=== PATIENT | female | born 1985 | race Caucasian/White ===

== ENCOUNTER 2017-09-21 19:01 | Emergency (ER) | payer OTHER ==
[~2017-09-21] VITALS: Ht 175.3 cm; Wt 85.1 kg
--- NOTE | 2017-09-21 19:23 | ED.ADGEN ---
Past History Past Medical History: Migraines Past Surgical History: Hysterectomy Adult General Chief Complaint Chief Complaint ".. I am having a Migraine--- it just like my usual... but more... I usually have to come and get a shot of Toradol... when they get this bad... I ve had CT ... and MRI normal... I see Dr. Ellsworth... and she tell me to just come in get treated when they are bad... I tried to see my doctor.. and Dr Dunn..but all spots filled.. said go to Emergency room.. I ve been trying to do over the counter the past couple days..." HPI HPI Patient is a 32 year old female who presents with above hx and complaints of Migraine. (See Handwritten chart for down time. ) No history of fever. No history of cancer. No history immunosuppression. History of travel or specific ill contacts. Patient has had previous MRIs and CTs reportedly negative. Patient states when migraines are bad she usually comes to the ER and get a Toradol shot. Review of Systems Review of Systems Constitutional: Denies fever or chills [] Eyes: Denies change in visual acuity, redness, or eye pain [] HENT: Denies nasal congestion or sore throat [] Respiratory: Denies cough or shortness of breath [] Cardiovascular: No additional information not addressed in HPI [] GI: Denies abdominal pain, nausea, vomiting, bloody stools or diarrhea [] : Denies dysuria or hematuria [] Musculoskeletal: Denies back pain or joint pain [] Integument: Denies rash or skin lesions [] Neurologic: Denies headache, focal weakness or sensory changes [] Endocrine: Denies polyuria or polydipsia [] All other systems were reviewed and found to be within normal limits, except as documented in this note. Family History Family History Noncontributory Allergies Allergies Allergies Coded Allergies Type Severity Reaction Last Updated Verified tramadol Allergy Intermediate 09/21/17 Yes Physical Exam Physical Exam Constitutional: Well developed, well nourished, no acute distress, non-toxic appearance. [] HENT: Normocephalic, atraumatic, bilateral external ears normal, oropharynx moist, no oral exudates, nose normal. [] Eyes: PERRLA, EOMI, conjunctiva normal, no discharge. [] Neck: Normal range of motion, no tenderness, supple, no stridor. [] Cardiovascular:Heart rate regular rhythm, no murmur [] Lungs & Thorax: Bilateral breath sounds clear to auscultation [] Abdomen: Bowel sounds normal, soft, no tenderness, no masses, no pulsatile masses. [] Skin: Warm, dry, no erythema, no rash. [] Back: No tenderness, no CVA tenderness. [] Extremities: No tenderness, no cyanosis, no clubbing, ROM intact, no edema. [] Neurologic: Alert and oriented X 3, normal motor function, normal sensory function, no focal deficits noted. []Cutting Machine Tender Decorative equal. DTRs +2 patella and brachial. Psychologic: Affect anxious, judgement normal, mood normal. [] Current Patient Data Vital Signs Vital Signs Date Time Temp Pulse Resp B/P (MAP) Pulse Ox O2 Delivery O2 Flow Rate FiO2 09/21/17 21:43 67 18 112/69 (83) 98 Room Air 09/21/17 19:22 98.2 EKG EKG [] Radiology/Procedures Radiology/Procedures Patient declines CT or lab evaluation.[] Course & Med Decision Making Course & Med Decision Making Pertinent Labs and Imaging studies reviewed. (See chart for details) Patient reports markedly pain at time of discharge. Patient keep follow-up primary care. Patient keep follow-up with neurology. Patient return of any concerns. [] Final Impression Final Impression 1. Migraine-[] Dragon Disclaimer Dragon Disclaimer This electronic medical record was generated, in whole or in part, using a voice recognition dictation system. KY CAMPA MD Sep 21, 2017 19:23
[2017-09-21 21:43] VITALS: BP 112/69
== END 2017-09-21 21:44 | disposition home or self-care (01) ==
LOC: ER 19:01
DX: G43.909 Migraine, unspecified, not intractable, without status migrainosus (principal); Z88.6 Allergy status to analgesic agent
CPT/HCPCS: 99284

== ENCOUNTER → 2018-01-24 | Outpatient (CLI) | payer OTHER ==
[~2018-01-24] MED LIST: HYDR-971 PO
--- NOTE | 2018-01-24 15:27 | RAD ---
PQRS Compliance statement: One or more of the following individualized dose reduction techniques were utilized for this examination: 1. Automated exposure control. 2. Adjustment of the mA and/or kV according to patient size. 3. Use of iterative reconstruction technique. Indication:right flank pain hematuria x2 weeks, sx hysterectomy TECHNIQUE: CT abdomen and pelvis without IV contrast with multiplanar reformats. COMPARISON: None FINDINGS: Limited evaluation of solid abdominal and pelvic organs due to lack of IV contrast. Heart is normal in size. No pericardial or pleural effusion. Clear lung bases. Noncontrast appearance of the liver, spleen, pancreas, adrenals within normal limits. Status post cholecystectomy. No nephrolithiasis or hydronephrosis. No enlarged retroperitoneal or pelvic adenopathy. No free pelvic fluid or ascites. No bowel obstruction. Status post hysterectomy. Urinary bladder is decompressed but shows no opaque stones. Bilateral ovaries are seen. No pneumoperitoneum. No suspicious bony lesion. IMPRESSION: Limited evaluation of solid abdominal and pelvic organs due to lack of IV contrast. No nephrolithiasis or hydronephrosis. Electronically signed by: Kartik Ramos DO (01/24/2018 3:23 PM) [id number]
== END | disposition home or self-care (01) ==
LOC: CT 14:46
PROVIDERS: ATTEND Physician Assistant Medical
DX: R10.84 Generalized abdominal pain (principal); Z90.49 Acquired absence of other specified parts of digestive tract; Z90.710 Acquired absence of both cervix and uterus
CPT/HCPCS: 74176

== ENCOUNTER 2018-01-25 08:54 | Emergency (ER) | payer OTHER ==
[~2018-01-25] VITALS: Ht 157.5 cm; Wt 86.2 kg
[2018-01-25] MEDS ORDERED: KETOROLAC 60 MG/2 ML VIAL. IM ONE (09:30)
[2018-01-25] MEDS ORDERED: ONDANSETRON ODT 4 MG TAB.RAPDIS PO ONE (09:30)
[2018-01-25] MEDS ORDERED: IV NORMAL SALINE 1,000ML 1,000 ML IV SCH (09:31)
[2018-01-25 09:40] LABS: BACTERIA,URINE MOD /HPF (0-FEW); BILIRUBIN,URINE NEG (NEG); CLARITY,URINE CLOUDY; COLOR,URINE AMBER; GLUCOSE,URINE NEG (NEG); NITRITE,URINE NEG (NEG); RBC,URINE RARE /HPF (0-2); UROBILINOGEN,URINE 0.2 mg/dL (0.2 mg/dL); WBC,URINE RARE /HPF (0-4)
[2018-01-25 09:41] LABS: SQUAMOUS EPITHELIAL CELL,UR MANY /LPF
[2018-01-25 09:54] LABS: BASO # 0.1 x10^3/uL (0.0-0.2); BASO % 1 % (0-3); EOS # 0.4 x10^3/uL (0.0-0.7); EOS % 4 % (0-3); HEMATOCRIT 42.8 % (36.0-47.0); HEMOGLOBIN 14.9 g/dL (12.0-15.5); LYMPH # 3.2 x10^3/uL (1.0-4.8); LYMPH % 33 % (24-48); MEAN CORPUSCULAR HEMOGLOBIN 32 pg (25-35); MEAN CORPUSCULAR HGB CONC 35 g/dL (31-37); MEAN CORPUSCULAR VOLUME 91 fL (79-100); MONO # 0.5 x10^3/uL (0.0-1.1); MONO % 5 % (0-9); NEUT # 5.4 x10^3uL (1.8-7.7); NEUT % 57 % (31-73); PLATELET COUNT 249 x10^3/uL (140-400); RED BLOOD COUNT 4.73 x10^6/uL (3.50-5.40); WHITE BLOOD COUNT 9.5 x10^3/uL (4.0-11.0)
[2018-01-25] MEDS ORDERED: KETOROLAC 30 MG/ML VIAL. IV ONE (10:00)
[2018-01-25] MEDS ORDERED: ONDANSETRON PF 4 MG/2 ML VIAL. IV ONE (10:00)
[2018-01-25 10:09] LABS: ALBUMIN/GLOBULIN RATIO 1.3 (1.0-1.7); CALCIUM 9.1 mg/dL (8.5-10.1); CREATININE 0.7 mg/dL (0.6-1.0); GFR 95.8; POTASSIUM 3.1 mmol/L (3.5-5.1); TOTAL BILIRUBIN 0.8 mg/dL (0.2-1.0); TOTAL PROTEIN 7.2 g/dL (6.4-8.2)
[2018-01-25] MEDS ORDERED: HYDR-3165 PO (10:53)
[2018-01-25 10:56] VITALS: BP 94/59
[2018-01-25] MEDS ORDERED: POTASSIUM CHLORIDE 20 MEQ TABLET.ER. PO ONE (11:00)
--- NOTE | 2018-01-25 11:08 | PHYS DOC ---
Past History Past Medical History: Migraines Past Surgical History: Appendectomy, Cholecystectomy, Hysterectomy Alcohol Use: Occasionally Drug Use: None Adult General Chief Complaint Chief Complaint: PAIN ON URINATION HPI HPI Patient is a 32 year old female who presents with complaining of painful urination. Patient states she has had painful urination and seen by her primary care physician and treated for UTI 1 week ago. Patient states she had small amount of not in her urine at the same time and after her symptoms did not get better her primary care physician orders CT of abdomen and pelvis for evaluation of kidney stones that was done yesterday in this hospital. Patient complaining of bilateral flank pain dysuria during daily and nausea without vomiting, fever and chills, diarrhea and constipation. Review of Systems Review of Systems Constitutional: Denies fever or chills [] Eyes: Denies change in visual acuity, redness, or eye pain [] HENT: Denies nasal congestion or sore throat [] Respiratory: Denies cough or shortness of breath [] Cardiovascular: No additional information not addressed in HPI [] GI: Reports abdominal pain, nausea, denies vomiting, bloody stools or diarrhea [ ] : Reports dysuria and hematuria Musculoskeletal: Denies back pain or joint pain [] Integument: Denies rash or skin lesions [] Neurologic: Denies headache, focal weakness or sensory changes [] Endocrine: Denies polyuria or polydipsia [] All other systems were reviewed and found to be within normal limits, except as documented in this note. Current Medications Current Medications Current Medications Medications (Trade) Dose Ordered Sig/Kelsie Start Time Stop Time Status Last Admin Dose Admin Ketorolac Tromethamine (Toradol 30mg Vial) 30 mg 1X ONCE 01/25/18 10:00 01/25/18 10:01 DC 01/25/18 09:43 30 MG Ketorolac Tromethamine (Toradol Im) 60 mg 1X ONCE 01/25/18 09:30 01/25/18 09:31 DC Ondansetron HCl (Zofran Odt) 4 mg 1X ONCE 01/25/18 09:30 01/25/18 09:31 DC Ondansetron HCl (Zofran) 4 mg 1X ONCE 01/25/18 10:00 01/25/18 10:01 DC 01/25/18 09:44 4 MG Potassium Chloride (Klor-Con) 40 meq 1X ONCE 01/25/18 10:30 01/25/18 10:31 UNV Sodium Chloride 1,000 ml @ 1,000 mls/hr Q1H 01/25/18 09:31 01/25/18 10:30 DC 01/25/18 09:44 1,000 MLS/HR Allergies Allergies Allergies Coded Allergies Type Severity Reaction Last Updated Verified tramadol Allergy Intermediate 09/21/17 Yes Physical Exam Physical Exam Constitutional: Well developed, well nourished, mild distress, non-toxic appearance. [] HENT: Normocephalic, atraumatic, oropharynx moist, no oral exudates, nose normal. [] Eyes: PERRLA, EOMI, conjunctiva normal, no discharge. [] Neck: Normal range of motion, no tenderness, supple, no stridor. [] Cardiovascular:Heart rate regular rhythm, no murmur [] Lungs & Thorax: Bilateral breath sounds clear to auscultation [] Abdomen: Bowel sounds normal, soft, no tenderness, no masses, no pulsatile masses. [] Skin: Warm, dry, no erythema, no rash. [] Back: No tenderness, no CVA tenderness. [] Extremities: No tenderness, no cyanosis, no clubbing, ROM intact, no edema. [] Neurologic: Alert and oriented X 3, normal motor function, normal sensory function, no focal deficits noted. [] Psychologic: Affect normal, judgement normal, mood normal. [] Current Patient Data Vital Signs Vital Signs Date Time Temp Pulse Resp B/P (MAP) Pulse Ox O2 Delivery O2 Flow Rate FiO2 01/25/18 10:16 59 17 97/51 (66) 99 Room Air 01/25/18 09:10 98.2 Lab Results Laboratory Tests Test 01/25/18 09:08 01/25/18 09:37 Urine Collection Type Unknown Urine Color Sharonda Urine Clarity Cloudy Urine pH 5.5 Urine Specific D Hanis 1.025 Urine Protein Neg (NEG-TRACE) Urine Glucose (UA) Neg mg/dL (NEG) Urine Ketones (Stick) Neg mg/dL (NEG) Urine Blood Neg (NEG) Urine Nitrite Neg (NEG) Urine Bilirubin Neg (NEG) Urine Urobilinogen Dipstick 0.2 mg/dL (0.2 mg/dL) Urine Leukocyte Esterase Neg (NEG) Urine RBC Rare /HPF (0-2) Urine WBC Rare /HPF (0-4) Urine Squamous Epithelial Cells Many /LPF Urine Bacteria Mod /HPF (0-FEW) Urine Mucus Marked /LPF White Blood Count 9.5 x10^3/uL (4.0-11.0) Red Blood Count 4.73 x10^6/uL (3.50-5.40) Hemoglobin 14.9 g/dL (12.0-15.5) Hematocrit 42.8 % (36.0-47.0) Mean Corpuscular Volume 91 fL (79-100) Mean Corpuscular Hemoglobin 32 pg (25-35) Mean Corpuscular Hemoglobin Concent 35 g/dL (31-37) Red Cell Distribution Width 13.0 % (11.5-14.5) Platelet Count 249 x10^3/uL (140-400) Neutrophils (%) (Auto) 57 % (31-73) Lymphocytes (%) (Auto) 33 % (24-48) Monocytes (%) (Auto) 5 % (0-9) Eosinophils (%) (Auto) 4 % (0-3) H Basophils (%) (Auto) 1 % (0-3) Neutrophils # (Auto) 5.4 x10^3uL (1.8-7.7) Lymphocytes # (Auto) 3.2 x10^3/uL (1.0-4.8) Monocytes # (Auto) 0.5 x10^3/uL (0.0-1.1) Eosinophils # (Auto) 0.4 x10^3/uL (0.0-0.7) Basophils # (Auto) 0.1 x10^3/uL (0.0-0.2) Sodium Level 140 mmol/L (136-145) Potassium Level 3.1 mmol/L (3.5-5.1) L Chloride Level 103 mmol/L (98-107) Carbon Dioxide Level 25 mmol/L (21-32) Anion Gap 12 (6-14) Blood Urea Nitrogen 6 mg/dL (7-20) L Creatinine 0.7 mg/dL (0.6-1.0) Estimated GFR (Cockcroft-Gault) 95.8 BUN/Creatinine Ratio 9 (6-20) Glucose Level 93 mg/dL (70-99) Calcium Level 9.1 mg/dL (8.5-10.1) Total Bilirubin 0.8 mg/dL (0.2-1.0) Aspartate Amino Transferase (AST) 30 U/L (15-37) Alanine Aminotransferase (ALT) 54 U/L (14-59) Alkaline Phosphatase 81 U/L (46-116) Total Protein 7.2 g/dL (6.4-8.2) Albumin 4.0 g/dL (3.4-5.0) Albumin/Globulin Ratio 1.3 (1.0-1.7) Lipase 269 U/L (73-393) EKG EKG [] Radiology/Procedures Radiology/Procedures [] Course & Med Decision Making Course & Med Decision Making Pertinent Labs reviewed. (See chart for details) Evaluation of patient in ER showed 32-year-old female patient with history of dysuria and flank pain for more than one week that did not get better with outpatient treatment. Patient had CT of abdomen and pelvis yesterday as outpatient without kidney stone or other abnormal finding. And had mild hypokalemia with unremarkable labs and UA. Plan discharge patient home with diagnosis of flank pain possibly muscular strain and hypokalemia. Dragon Disclaimer Dragon Disclaimer This electronic medical record was generated, in whole or in part, using a voice recognition dictation system. Departure Departure: Impression: Primary Impression: Bilateral flank pain Additional Impressions: Hypokalemia Dysuria Disposition: 01 HOME, SELF-CARE (at 1047) Condition: IMPROVED Referrals: NURIS LIN (PCP) Patient Instructions: Dysuria, Flank Pain, Hypokalemia Additional Instructions: Drink plenty of liquids Follow-up with your primary care physician in 3-5 days Return to ER if not getting better Scripts Hydrocodone Bit/Acetaminophen (NORCO 5-325 TABLET) 1 Each Tablet 1 TAB PO PRN Q6HRS PRN for PAIN, #14 TAB 0 Refills Prov: MICHELLE SANCHEZ MD 01/25/18 Problem Qualifiers MICHELLE SANCHEZ MD Jan 25, 2018 11:08
== END 2018-01-25 11:24 | disposition home or self-care (01) ==
LOC: ER 08:54
DX: R30.0 Dysuria (principal); E87.6 Hypokalemia; R10.9 Unspecified abdominal pain; G43.909 Migraine, unspecified, not intractable, without status migrainosus; Z90.89 Acquired absence of other organs; Z90.49 Acquired absence of other specified parts of digestive tract; Z90.710 Acquired absence of both cervix and uterus; Z88.6 Allergy status to analgesic agent
CPT/HCPCS: 36415; 80053; 81001; 83690; 85025; 87086; 96374; 96375; 99284; J1885; J2405; J7030

== ENCOUNTER → 2018-03-29 | Outpatient (CLI) | payer OTHER ==
[~2018-03-29] MED LIST changes: +HYDR-3165 PO; -HYDR-971 PO
--- NOTE | 2018-03-29 17:32 | RAD ---
Right wrist, 2 views, 03/29/2018: HISTORY: Hand and wrist pain No fracture or dislocation is identified. No significant arthritic change is seen. The soft tissues are unremarkable. IMPRESSION: No significant right wrist abnormality is detected. Right hand, 3 views, 03/29/2018: No fracture or dislocation is identified. No significant arthritic change is seen. IMPRESSION: No significant right hand abnormality is detected. Electronically signed by: Matthew Cuevas MD (03/29/2018 5:27 PM) [facility]
== END | disposition home or self-care (01) ==
LOC: RAD 15:40
PROVIDERS: ATTEND Registered Nurse
DX: M79.641 Pain in right hand (principal); M25.531 Pain in right wrist
CPT/HCPCS: 73100; 73130

== ENCOUNTER → 2018-05-25 | Outpatient (CLI) | payer OTHER ==
--- NOTE | 2018-05-30 09:42 | RAD ---
Indication: Routine screening. Technique: 2-D and 3-D bilateral mammogram. CAD was utilized. Comparison: Previous mammogram from 2015. Findings: Breast density category C: The breasts are heterogeneously dense which may obscure small masses. The skin and nipples are within normal limits. No suspicious calcifications, spiculated mass or area of architectural distortion. Impression: No mammographic evidence of malignancy. BI-RADS 2: Benign findings. Continued annual screening.
== END | disposition home or self-care (01) ==
LOC: MAMMO 15:02
PROVIDERS: ATTEND Physician Assistant Medical
DX: Z12.31 Encounter for screening mammogram for malignant neoplasm of breast (principal)
CPT/HCPCS: 77063; 77067

== ENCOUNTER 2018-08-29 16:04 | Emergency (ER) | payer OTHER ==
[2018-08-29 16:20] VITALS: BP 127/74
[2018-08-29] MEDS ORDERED: IV NORMAL SALINE 1,000ML 1,000 ML IV SCH (16:36)
[2018-08-29] MEDS ORDERED: HYDROmorphone PF 1 MG/ML DISP.SYRIN IV/SQ PRN (16:45)
[2018-08-29] MEDS ORDERED: IOHEXOL 300 MG/ML 75 ML VIAL. IV ONE (16:45)
[2018-08-29] MEDS ORDERED: ONDANSETRON PF 4 MG/2 ML VIAL. IV ONE (16:45)
--- NOTE | 2018-08-29 16:55 | PHYS DOC ---
Past History Past Medical History: Endometriosis, Migraines, Other Past Surgical History: Appendectomy, Cholecystectomy, Hysterectomy Alcohol Use: None Drug Use: None Adult General Chief Complaint Chief Complaint: ABDOMINAL PAIN HPI HPI Patient is a 33-year-old female who presents with complaint of left lower abdominal pain for the last couple of days. Patient indicates that she has had constipation and has not had a bowel movement about a week and a half. She indicates that the pain in her left lower abdomen and radiates right into the back and she describes it as a sharp pain. She denies any nausea or vomiting. She also denies any diarrhea. Patient states that she has had no fever. She reports that she was recently seen by a GI specialist and was prescribed medication that she indicates was quite expensive and she was not able to fill it. She has been using some [id number] laxatives but they have not been working.[] Review of Systems Review of Systems Constitutional: Denies fever or chills [] Respiratory: Denies cough or shortness of breath [] Cardiovascular: No additional information not addressed in HPI [] GI: Complains of left lower abdominal pain without vomiting or diarrhea [] Integument: Denies rash or skin lesions [] Neurologic: Denies headache, focal weakness or sensory changes [] All other systems were reviewed and found to be within normal limits, except as documented in this note. Current Medications Current Medications Current Medications Medications (Trade) Dose Ordered Sig/Kelsie Start Time Stop Time Status Last Admin Dose Admin Hydromorphone HCl (Dilaudid) 0.5 mg PRN Q15MIN PRN 08/29/18 16:45 08/30/18 16:44 Iohexol (Omnipaque 300 Mg/ml) 75 ml 1X ONCE 08/29/18 16:45 08/29/18 16:51 DC Ondansetron HCl (Zofran) 4 mg 1X ONCE 08/29/18 16:45 08/29/18 16:47 DC Sodium Chloride 1,000 ml @ 1,000 mls/hr Q1H 08/29/18 16:36 08/29/18 17:35 Allergies Allergies Allergies Coded Allergies Type Severity Reaction Last Updated Verified tramadol Allergy Intermediate 09/21/17 Yes Physical Exam Physical Exam Constitutional: Well developed, well nourished, no acute distress, non-toxic appearance. [] HENT: Normocephalic, atraumatic, bilateral external ears normal, oropharynx moist, no oral exudates, nose normal. [] Eyes: PERRLA, EOMI, conjunctiva normal, no discharge. [] Neck: Normal range of motion, no tenderness, supple, no stridor. [] Cardiovascular:Heart rate regular rhythm, no murmur [] Lungs & Thorax: Bilateral breath sounds clear to auscultation [] Abdomen: Bowel sounds normal, soft, with left lower quadrant tenderness. [] Skin: Warm, dry, no erythema, no rash. [] Extremities: No tenderness, no cyanosis, no clubbing, ROM intact. [] Neurologic: Alert and oriented X 3, no focal deficits noted. [] Current Patient Data Vital Signs Vital Signs Date Time Temp Pulse Resp B/P (MAP) Pulse Ox O2 Delivery O2 Flow Rate FiO2 08/29/18 16:20 98.4 84 18 98 Room Air EKG EKG [] Radiology/Procedures Radiology/Procedures [] Impressions: CT ABD PELV W/ IV CONTRST ONLY Indication: Left lower quadrant abdominal pain starting on Monday, constipation Technique: Postcontrast CT imaging was performed of the abdomen pelvis, multiplanar reconstruction images submitted. No oral contrast was given. One or more of the following individualized dose reduction techniques were utilized for this examination: 1. Automated exposure control 2. Adjustment of the mA and/or kV according to patient size 3. Use of iterative reconstruction technique. Comparison: January 24, 2018 Findings: There is some motion. There is no abnormality of the limited visualized lung bases. There is mild right hydroureteronephrosis, no calculus identified in the ureter. There is mild fluid in the pelvis extending more localized about the rectum. There are some stool in the rectum. There is distention of urinary bladder. There apparently has been appendectomy. There may be a degree of small bowel wall thickening such as of more small proximal bowel although limited characterization without oral contrast. Bowel is not significantly dilated. There is retroaortic left renal vein. Both kidneys enhance. There has been cholecystectomy. No new focal abnormality is identified of the liver, pancreas, spleen. There is no pleural fluid visualized lung bases. IMPRESSION: 1. There is mild perirectal fluid, stool retention in the rectum. Findings could be related to proctitis. There is some distention of the urinary bladder. There is mild right hydroureteronephrosis, no obstructive calculus. There could be a degree of mild small bowel wall thickening as may be seen with enteritis although poorly evaluated without oral contrast. Electronically signed by: Jose Antonio Myers MD (08/29/2018 5:31 PM) [id number] DICTATED AND SIGNED BY: JOSE ANTONIO MYERS MD DATE: 08/29/18 173 CC: DOUGIE ECHEVARRIA Jr. DO; NURIS LIN ~ Course & Med Decision Making Course & Med Decision Making Pertinent Labs and Imaging studies reviewed. (See chart for details) [] Dragon Disclaimer Dragon Disclaimer This electronic medical record was generated, in whole or in part, using a voice recognition dictation system. Departure Departure: Impression: Primary Impression: Constipation Additional Impressions: LLQ abdominal pain Proctitis Disposition: HOME, SELF-CARE Condition: STABLE Referrals: NURIS LIN (PCP) Patient Instructions: Abdominal Pain, Constipation, Adult, Proctitis Scripts Acetaminophen With Codeine (TYLENOL WITH CODEINE #3 TABLET) 1 Each Tablet 1 TAB PO Q6HRS PRN for PAIN, #12 TAB Prov: DOUGIE ECHEVARRIA Jr. DO 08/29/18 Lactulose (LACTULOSE) 10 Gm/15 Ml Solution 15 ML PO [id number] PRN for CONSTIPATION, #900 ML Prov: DOUGIE ECHEVARRIA Jr. DO 08/29/18 Ondansetron Hcl (ZOFRAN) 4 Mg Tablet 4 MG PO Q6HRS PRN for NAUSEA, #12 TAB Prov: DOUGIE ECHEVARRIA Jr. DO 08/29/18 Problem Qualifiers Primary Impression: Constipation Constipation type: unspecified constipation type Qualified Codes: K59.00 - Constipation, unspecified DOUGIE ECHEVARRIA Jr. DO Aug 29, 2018 16:55
[2018-08-29 16:58] LABS: BASO # 0.1 x10^3/uL (0.0-0.2); BASO % 1 % (0-3); EOS # 0.1 x10^3/uL (0.0-0.7); EOS % 1 % (0-3); HEMATOCRIT 42.4 % (36.0-47.0); HEMOGLOBIN 14.9 g/dL (12.0-15.5); LYMPH # 1.5 x10^3/uL (1.0-4.8); LYMPH % 12 % (24-48); MEAN CORPUSCULAR HEMOGLOBIN 32 pg (25-35); MEAN CORPUSCULAR HGB CONC 35 g/dL (31-37); MEAN CORPUSCULAR VOLUME 90 fL (79-100); MONO # 0.5 x10^3/uL (0.0-1.1); MONO % 4 % (0-9); NEUT # 10.3 x10^3uL (1.8-7.7); NEUT % 82 % (31-73); PLATELET COUNT 235 x10^3/uL (140-400); RED BLOOD COUNT 4.71 x10^6/uL (3.50-5.40); RED CELL DISTRIBUTION WIDTH 12.9 % (11.5-14.5); WHITE BLOOD COUNT 12.6 x10^3/uL (4.0-11.0)
[2018-08-29 17:11] LABS: ALBUMIN 4.1 g/dL (3.4-5.0); ALBUMIN/GLOBULIN RATIO 1.2 (1.0-1.7); CALCIUM 9.3 mg/dL (8.5-10.1); CREATININE 0.8 mg/dL (0.6-1.0); GFR 81.6; POTASSIUM 3.3 mmol/L (3.5-5.1); TOTAL BILIRUBIN 0.9 mg/dL (0.2-1.0); TOTAL PROTEIN 7.4 g/dL (6.4-8.2)
--- NOTE | 2018-08-29 17:34 | RAD ---
CT ABD PELV W/ IV CONTRST ONLY Indication: Left lower quadrant abdominal pain starting on Monday, constipation Technique: Postcontrast CT imaging was performed of the abdomen pelvis, multiplanar reconstruction images submitted. No oral contrast was given. One or more of the following individualized dose reduction techniques were utilized for this examination: 1. Automated exposure control 2. Adjustment of the mA and/or kV according to patient size 3. Use of iterative reconstruction technique. Comparison: January 24, 2018 Findings: There is some motion. There is no abnormality of the limited visualized lung bases. There is mild right hydroureteronephrosis, no calculus identified in the ureter. There is mild fluid in the pelvis extending more localized about the rectum. There are some stool in the rectum. There is distention of urinary bladder. There apparently has been appendectomy. There may be a degree of small bowel wall thickening such as of more small proximal bowel although limited characterization without oral contrast. Bowel is not significantly dilated. There is retroaortic left renal vein. Both kidneys enhance. There has been cholecystectomy. No new focal abnormality is identified of the liver, pancreas, spleen. There is no pleural fluid visualized lung bases. IMPRESSION: 1. There is mild perirectal fluid, stool retention in the rectum. Findings could be related to proctitis. There is some distention of the urinary bladder. There is mild right hydroureteronephrosis, no obstructive calculus. There could be a degree of mild small bowel wall thickening as may be seen with enteritis although poorly evaluated without oral contrast. Electronically signed by: David Page MD (08/29/2018 5:31 PM) [id number]
[2018-08-29] MEDS ORDERED: MAGNESIUM CITRATE 296 ML SOLUTION. ONE (17:47)
[2018-08-29] MEDS ORDERED: ONDA4TAB7 PO (17:55)
[2018-08-29] MEDS ORDERED: ACET-704 PO (17:55)
[2018-08-29] MEDS ORDERED: LACT10SO PO (17:55)
[2018-08-29] MEDS ORDERED: MAGNESIUM CITRATE 296 ML SOLUTION. PO ONE (18:00)
== END 2018-08-29 18:00 | disposition home or self-care (01) ==
LOC: ER 16:04
DX: K59.00 Constipation, unspecified (principal); K62.89 Other specified diseases of anus and rectum; G43.909 Migraine, unspecified, not intractable, without status migrainosus; Z90.49 Acquired absence of other specified parts of digestive tract; Z90.89 Acquired absence of other organs; Z90.710 Acquired absence of both cervix and uterus; Z88.6 Allergy status to analgesic agent
CPT/HCPCS: 36415; 74177; 80053; 83690; 85025; 96374; 96375; 99285; J1170; J2405; Q9967; J7030

== ENCOUNTER 2019-07-22 08:28 | Emergency (ER) | payer OTHER ==
[~2019-07-22] VITALS: Ht 157.5 cm; Wt 80.7 kg
[~2019-07-22 08:28] MED LIST changes: +ACET-704 PO; +LACT10SO PO; +ONDA4TAB7 PO
--- NOTE | 2019-07-22 08:50 | PHYS DOC ---
Past History Past Medical History: Endometriosis, Migraines, Other Past Surgical History: Appendectomy, Cholecystectomy, Hysterectomy Smoking: Non-smoker Alcohol Use: None Drug Use: None General Adult HPI: HPI: Patient is a 34-year-old female presents to the emergency department for evaluation of anterior chest discomfort, which began last night. The pain is worsened with sitting up and improved with laying flat. The pain is also worsened with deep breathing. The pain will intermittently radiate towards her back, and down her left arm, but the pain is not worsened with exertion or physical activity. Massaging the affected area helps improve the patient's pain, and movement of the affected areas worsen her pain. She has not had any nausea, vomiting, diaphoresis, chills, cough, significant shortness of breath, dizziness or lightheadedness, numbness, weakness. She has no family history of premature onset coronary artery disease. She is a non-smoker. She does not use any hormone replacement medication. Review of Systems: Review of Systems: Constitutional: Denies fever or chills Eyes: Denies change in visual acuity HENT: Denies nasal congestion or sore throat Respiratory: Denies cough or shortness of breath Cardiovascular: Denies chest pain or edema GI: Denies abdominal pain, nausea, vomiting, bloody stools or diarrhea : Denies dysuria Musculoskeletal: Denies back pain or joint pain Integument: Denies rash Neurologic: Denies headache, focal weakness or sensory changes Endocrine: Denies polyuria or polydipsia Lymphatic: Denies swollen glands Psychiatric: Denies depression or anxiety Heart Score: HEART Score for Chest Pain: HEART Score for Chest Pain Response (Comments) Value History Slighlty/Non-Suspicious 0 ECG Normal 0 Age < 45 0 Risk Factors No Risk Factors 0 Troponin < Normal Limit 0 Total 0 Risk Factors: Risk Factors: DM, Current or recent (<one month) smoker, HTN, HLP, family history of CAD, obesity. Risk Scores: Score 0 - 3: 2.5% MACE over next 6 weeks - Discharge Home Score 4 - 6: 20.3% MACE over next 6 weeks - Admit for Clinical Observation Score 7 - 10: 72.7% MACE over next 6 weeks - Early Invasive Strategies Allergies: Allergies: Allergies Coded Allergies Type Severity Reaction Last Updated Verified tramadol Allergy Intermediate 09/21/17 Yes Physical Exam: PE: PHYSICAL EXAM: CONSTITUTIONAL: Well developed, well nourished HEAD: normocephalic, atraumatic EENT: PERRL, EOMI. Conjunctivae normal color, sclerae non-icteric; moist mucous membranes. NECK: Supple, non-tender; no meningismus. LUNGS: Lungs CTA, breathing even and unlabored. Normal air movement. HEART: Regular rate and rhythm, no murmur CHEST: No deformity; palpation of the anterior chest wall reproduces the patient 's pain. ABDOMEN: The abdomen is soft, and non-tender, no masses or bruits. EXTREM: Normal ROM; no deformity, no calf tenderness. Normal pulses palpable in all extremities. There is no pedal edema. SKIN: No rash; no diaphoresis NEURO: Alert; normal speech and cognition; CN's grossly intact; strength grossly intact without focal deficit. BACK: No CVA TTP. Current Patient Data: Labs: Laboratory Tests Test 07/22/19 08:45 07/22/19 09:10 White Blood Count 10.5 x10^3/uL Red Blood Count 4.65 x10^6/uL Hemoglobin 15.0 g/dL Hematocrit 42.8 % Mean Corpuscular Volume 92 fL Mean Corpuscular Hemoglobin 32 pg Mean Corpuscular Hemoglobin Concent 35 g/dL Red Cell Distribution Width 13.2 % Platelet Count 257 x10^3/uL Neutrophils (%) (Auto) 57 % Lymphocytes (%) (Auto) 32 % Monocytes (%) (Auto) 6 % Eosinophils (%) (Auto) 4 % Basophils (%) (Auto) 1 % Neutrophils # (Auto) 6.0 x10^3uL Lymphocytes # (Auto) 3.3 x10^3/uL Monocytes # (Auto) 0.6 x10^3/uL Eosinophils # (Auto) 0.4 x10^3/uL Basophils # (Auto) 0.1 x10^3/uL Sodium Level 140 mmol/L Potassium Level 3.6 mmol/L Chloride Level 104 mmol/L Carbon Dioxide Level 26 mmol/L Anion Gap 10 Blood Urea Nitrogen 8 mg/dL Creatinine 0.7 mg/dL Estimated GFR (Cockcroft-Gault) 94.7 BUN/Creatinine Ratio 11 Glucose Level 85 mg/dL Calcium Level 9.4 mg/dL Total Bilirubin 0.5 mg/dL Aspartate Amino Transf (AST/SGOT) 24 U/L Alanine Aminotransferase (ALT/SGPT) 40 U/L Alkaline Phosphatase 79 U/L Troponin I Quantitative < 0.017 ng/mL Total Protein 7.1 g/dL Albumin 4.0 g/dL Albumin/Globulin Ratio 1.3 Lipase 217 U/L D-Dimer (Veena) < 0.19 mg/L Current Medications Medications (Trade) Dose Ordered Sig/Kelsie Route PRN Reason Start Time Stop Time Status Last Admin Dose Admin Ketorolac Tromethamine (Toradol 30mg Vial) 30 mg 1X ONCE IVP 07/22/19 09:45 07/22/19 09:46 UNV EKG: EKG: Normal sinus rhythm with a normal rate, normal axis, normal intervals, there are no acute ischemic ST/T changes. [] Radiology/Procedures: Radiology/Procedures: PROCEDURE: CHEST PA & LATERAL EXAM: CHEST PA LATERAL 07/22/2019 8:45 AM CLINICAL INDICATION:Chest pain COMPARISON:None TECHNIQUE:PA and lateral views of the chest FINDINGS:The heart and mediastinum are normal. Lungs are well-expanded and clear. No pleural effusion or pneumothorax. No acute osseous abnormality. IMPRESSION:Normal chest radiograph.[] Course & Med Decision Making: Course & Med Decision Making Pertinent Labs and Imaging studies reviewed. (See chart for details) [] Patient remains stable. I discussed test results, the need for close follow- up, and return precautions. Dragon Disclaimer: Dragon Disclaimer: This electronic medical record was generated, in whole or in part, using a voice recognition dictation system. Departure Departure: Impression: Primary Impression: Chest wall pain Disposition: HOME, SELF-CARE Condition: STABLE Referrals: NURIS LIN (PCP) Patient Instructions: Chest Pain (Nonspecific), Chest Wall Pain, Musculoskeletal Pain Additional Instructions: Ibuprofen 400-600 mg every 6 hours may help improve your symptoms. Applying a heating pad to the affected area may help improve your symptoms. FABIOLA BASS MD July 22, 2019 08:50
--- NOTE | 2019-07-22 08:57 | EKG ---
[address] [address] Test Date: 2019-07-22 Test Time: 08:36:25 Pat Name: FELI BEAN Department: Room: Gender: F Electronic Device Repairer: : [id number] Requested By: FABIOLA BASS Order Number: [id number] Reading MD: Romulo Barfield Measurements Intervals [place] Rate: 92 P: 29 [place]: 134 QRS: 56 QRSD: 72 T: 32 QT: 362 QTc: 453 Interpretive Statements SINUS RHYTHM Electronically Signed On 07-22-2019 11:04:47 CDT by Romulo Barfield
[2019-07-22 09:08] LABS: BASO # 0.1 x10^3/uL (0.0-0.2); BASO % 1 % (0-3); EOS # 0.4 x10^3/uL (0.0-0.7); EOS % 4 % (0-3); HEMATOCRIT 42.8 % (36.0-47.0); LYMPH # 3.3 x10^3/uL (1.0-4.8); LYMPH % 32 % (24-48); MEAN CORPUSCULAR HEMOGLOBIN 32 pg (25-35); MEAN CORPUSCULAR HGB CONC 35 g/dL (31-37); MEAN CORPUSCULAR VOLUME 92 fL (79-100); MONO # 0.6 x10^3/uL (0.0-1.1); MONO % 6 % (0-9); NEUT % 57 % (31-73); PLATELET COUNT 257 x10^3/uL (140-400); RED BLOOD COUNT 4.65 x10^6/uL (3.50-5.40); RED CELL DISTRIBUTION WIDTH 13.2 % (11.5-14.5); WHITE BLOOD COUNT 10.5 x10^3/uL (4.0-11.0)
--- NOTE | 2019-07-22 09:09 | RAD ---
EXAM: CHEST PA LATERAL 07/22/2019 8:45 AM CLINICAL INDICATION:Chest pain COMPARISON:None TECHNIQUE:PA and lateral views of the chest FINDINGS:The heart and mediastinum are normal. Lungs are well-expanded and clear. No pleural effusion or pneumothorax. No acute osseous abnormality. IMPRESSION:Normal chest radiograph. Electronically signed by: Kim Hsieh MD (07/22/2019 9:06 AM) [id number]
[2019-07-22 09:14] LABS: CALCIUM 9.4 mg/dL (8.5-10.1); CREATININE 0.7 mg/dL (0.6-1.0); GFR 94.7; POTASSIUM 3.6 mmol/L (3.5-5.1)
[2019-07-22 09:20] LABS: ALBUMIN/GLOBULIN RATIO 1.3 (1.0-1.7); TOTAL BILIRUBIN 0.5 mg/dL (0.2-1.0); TOTAL PROTEIN 7.1 g/dL (6.4-8.2)
[2019-07-22] MEDS ORDERED: KETOROLAC 30 MG/ML VIAL. ONE (09:40)
[2019-07-22] MEDS ORDERED: KETOROLAC 30 MG/ML VIAL. IVP ONE (09:45)
[2019-07-22 09:50] VITALS: BP 123/69
== END 2019-07-22 09:50 | disposition home or self-care (01) ==
LOC: ER 08:28
DX: R07.89 Other chest pain (principal); G43.909 Migraine, unspecified, not intractable, without status migrainosus; Z88.6 Allergy status to analgesic agent
CPT/HCPCS: 36415; 71046; 80053; 83690; 84484; 85025; 85379; 93005; 96374; 99285; J1885

== ENCOUNTER → 2019-07-26 | Outpatient (CLI) | payer OTHER ==
[2019-07-22 09:50] VITALS: BP 123/69
--- NOTE | 2019-07-26 17:03 | RAD ---
DATE: 07/26/2019 3:10 PM EXAM: MAMMO JIMY SCREENING BILATERAL HISTORY: Screening COMPARISON: 05/25/2018, 01/13/2015 Bilateral CC and MLO views of the breasts were performed. Bilateral breast tomosynthesis was performed in CC and MLO projections. This study was interpreted with the benefit of Computerized Aided Detection (CAD). FINDINGS: Breast Density: HETERO The breast parenchyma Is heterogeneously dense, which could reduce sensitivity of mammography. Breast parenchyma level C Negative left mammogram. Right mammogram shows an asymmetry in the posterior lateral right breast on the cc view that needs additional imaging. The visualized axillae are unremarkable. IMPRESSION: Right breast asymmetry, findings for which additional imaging is advised. BI-RADS CATEGORY: 0 INCOMPLETE: NEEDS ADDITIONAL IMAGING EVALUATION AND/OR PRIOR MAMMOGRAMS FOR COMPARISON. RECOMMENDED FOLLOW-UP: ADD ADDITIONAL IMAGING Annual screening mammography is recommended, unless clinically indicated sooner based on symptoms or change in physical exam. PQRS compliance statement: Patient information was entered into a reminder system with a target due date for the next mammogram. Mammography is a sensitive method for finding small breast cancers, but it does not detect them all and is not a substitute for careful clinical examination. A negative mammogram does not negate a clinically suspicious finding and should not result in delay in biopsying a clinically suspicious abnormality. "Our facility is accredited by the [employer] Mammography [employer]."
== END | disposition home or self-care (01) ==
LOC: MAMMO 15:05
PROVIDERS: ATTEND Physician Assistant Medical
DX: Z12.31 Encounter for screening mammogram for malignant neoplasm of breast (principal)
CPT/HCPCS: 77063; 77067

== ENCOUNTER → 2019-08-07 | Outpatient (CLI) | payer OTHER ==
[2019-07-22 09:50] VITALS: BP 123/69
--- NOTE | 2019-08-07 15:46 | RAD ---
Examination: DIGITAL DIAGNOSTIC RT History: Reason: / Spl. Instructions: / History: Comparison/Correlation: 07/26/2019 screening mammographic exam Findings: Right mediolateral view was obtained. Spot compression imaging of the outer right breast was also performed. Breast Tissue Density C : The breasts are heterogeneously dense, which may obscure small masses. There are no dominant masses, suspicious microcalcifications, or architectural distortion. No suspicious persistent finding on spot compression of the outer right posterior breast identified. IMPRESSION: No mammographic evidence of malignancy. Recommend routine screening. BI-RADS category 1: Negative. The images were reviewed with computer aided detection. Patient information is entered into the reminder system with a target due date for the next screening mammogram. Mammography is the most sensitive method for finding small breast cancers, but it does not detect them all and is not a substitute for careful clinical examination. A negative mammogram does not negate a clinically suspicious finding and should not result in delay in biopsying a clinically suspicious abnormality. "Our facility is accredited by the [employer] Mammography [employer]." Electronically signed by: Pratik Coughlin MD (08/07/2019 3:43 PM) [id number]
== END ==
LOC: MAMMO 14:05
PROVIDERS: ATTEND Physician Assistant Medical
DX: R92.2 Inconclusive mammogram (principal)
CPT/HCPCS: 77065